=== PATIENT | male | born 1975 | race Caucasian/White ===

== ENCOUNTER 2018-06-19 14:11 | Emergency (ER) | payer MEDICAID ==
[~2018-06-19] VITALS: Ht 180.3 cm; Wt 97.5 kg
--- NOTE | 2018-06-19 14:11 | NUR ---
PATIENT BIBA TO BED 11 AT THIS TIME.
[2018-06-19 14:13] VITALS: BP 151/100
--- NOTE | 2018-06-19 14:17 | NUR ---
PT TRIAGED AND PLACED IN ED BED 11
--- NOTE | 2018-06-19 14:20 | NUR ---
42/M BIBA C/O LAC TO FOREHEAD S/P LACERATION AFTER METAL PIPE FELL ONTO HEAD AT A STORE. BLEEDING CONTROLLED. DENIES LOC. HX: HTN, HIV, FIBROMYALGIA, HIGH CHOLESTEROL MEDS: LOPTIC ACID, HYDROZXIZINEM, ATORVASTATIN, CELECOXIB, SYNTHROID,METHOCARBAMOL PATIENT STATES PAIN OF 7/10 AT THIS TIME. PATIENT POSITIONED FOR COMFORT; HOB ELEVATED; BEDRAILS UP X2; BED DOWN. ER MADE AWARE OF PT STATUS. Addendum: 06/19/18 at 1840 by [email or web address] Amendment undone in EDM - 06/19/18 at 184 by [email or web address] WOUND WITH PUS TO L ELBOW. WOUND C/S AT THIS TIME.
--- NOTE | 2018-06-19 14:37 | NUR ---
Patient being evaluated by DR AKINS at bedside.
[2018-06-19] MEDS ORDERED: NEOMYCIN/POLYMYXIN/BACITRACIN 0.9 GM/1 PKT TP ONE (15:05)
[2018-06-19] MEDS ORDERED: LIDOCAINE/EPI 1% 1:100000 20 ML VIAL INJ ONE (15:05)
[2018-06-19 18:59] VITALS: BP 123/71
--- NOTE | 2018-06-19 19:00 | NUR ---
Patient discharged with v/s stable. Written and verbal after care instructions given and explained. Patient verbalized understanding. Ambulatory with steady gait. All questions addressed prior to discharge. Advised to follow up with PMD.
== END 2018-06-19 19:00 | disposition home or self-care (01) ==
LOC: MED 14:11
DX: S01.81XA Laceration without foreign body of other part of head, initial encounter (principal); I10 Essential (primary) hypertension; W22.8XXA Striking against or struck by other objects, initial encounter; Y93.89 Activity, other specified; Y92.89 Other specified places as the place of occurrence of the external cause; Y99.8 Other external cause status
CPT/HCPCS: 12013; 99283; J2001